=== PATIENT | female | born 1995 | race Caucasian/White ===

== ENCOUNTER 2019-11-16 10:13 | Inpatient (IN) ==
[2019-11-16 11:04] LABS: Basophils # 0.1 10*3/uL (0.0-0.2); Basophils % 0.6 % (0.0-0.8); Eosinophils % 0.4 % (0.00-10.9); Hematocrit 38.8 VOL% (35.7-47.0); Hemoglobin 12.8 GM/DL (12.0-16.0); Immature Granulocytes % 0.8 %; Immature Granulocytes Absolute 0.09 #; Lymphocytes # 1.6 10*3/uL (1.4-4.0); Lymphocytes % 15.3 % (21.3-54.2); Mean Corpuscular Volume 91.1 FL (87-102); Mean Platelet Volume 11.5 FL (9.6-12.0); Monocytes % 6.7 % (1.7-12.7); Neutrophils % 76.2 % (38.7-73.9); Platelet Count 301 T/CUMM (130-400); Red Blood Count 4.26 MC/CUMM (3.8-5.5); Red Cell Distribution Width 13.2 % (9.3-17.3); White Blood Count 10.6 T/CUMM (4-12)
[2019-11-16] MEDS ORDERED: BUTORPHANOL 2 MG/ML VIAL IV PRN (19:07)
[2019-11-16] MEDS: ONDANSETRON 4 MG/2 ML VIAL IV PRN (19:20)
[2019-11-16] MEDS ORDERED: FAMOTIDINE 20 MG/2 ML VIAL IV ONE (19:52)
[2019-11-16] MEDS ORDERED: PROMETHAZINE 25 MG/1 ML VIAL IM ONE (19:52)
[2019-11-16] MEDS ORDERED: hydrOXYzine HCL 25 MG/1 ML VIAL IM PRN (19:52)
[2019-11-16] MEDS ORDERED: NALOXONE 0.4 MG/ML VIAL IV PRN (19:52)
[2019-11-16] MEDS ORDERED: ONDANSETRON 4 MG/2 ML VIAL IV ONE (19:52)
[2019-11-16] MEDS ORDERED: CITRIC ACID/SODIUM CITRATE 30 ML UDCUP PO ONE (19:52)
[2019-11-16] MEDS ORDERED: diphenhydrAMINE 50 MG/1 ML VIAL IV PRN ×2 (19:52)
[2019-11-16] MEDS ORDERED: ePHEDrine 50 MG/ML VIAL IV PRN (19:52)
[2019-11-16] MEDS: LACTATED RINGERS 1,000 ML IV SCH ×2 (21:36→22:20)
[2019-11-16] MEDS: fentaNYL 2 MCG/ROPIV 0.2% EPID 100 ML EPIDURAL SCH (22:02)
[2019-11-17] MEDS: OXYTOCIN/LR 20 UNIT/1,000 ML BAG IV SCH ×2 (00:04→12:19)
[2019-11-17 00:07] LABS: Apearance,Urine CLEAR (Clear); Bacteria,Urine Occasional /HPF (Few); Bilirubin,Urine Negative (Negative); Blood, Urine Negative (Negative); Glucose,Urine (UA) Negative (Negative); Ketones,Urine 5 mg/dL (Negative); Mucus,Urine Occasional /LPF (Occasional); Nitrite,Urine Negative (Negative); Protein,Urine Negative; Squamous Epithelial Cell,Urine Occasional /HPF (0-10); Urine Color Yellow (Yellow); Urine Specific Gravity 1.006 (1.001-1.035); Urine Urobilinogen < 2.0 EU/DL (0.2-1.0); WBC,Urine <1 /HPF (0-6)
[2019-11-17] MEDS: LACTATED RINGERS 1,000 ML IV SCH ×2 (05:39→12:20)
[2019-11-17] MEDS: fentaNYL 2 MCG/ROPIV 0.2% EPID 100 ML EPIDURAL SCH (06:17)
[2019-11-17] MEDS ORDERED: ceFAZolin 2,000 MG in PREMIX 1 EACH IV ONE (13:31)
[2019-11-17] MEDS ORDERED: MORPHINE 10 MG/10 ML VIAL ONE (13:34)
[2019-11-17] MEDS ORDERED: LIDOCAINE MPF 2% /EPI 20 ML VIAL ONE (13:35)
[2019-11-17] MEDS ORDERED: OXYTOCIN/LR 20 UNIT/1,000 ML BAG IV ONE ×2 (13:40→14:21)
[2019-11-17] MEDS ORDERED: TRANEXAMIC ACID 1,000 MG/10 ML VIAL ONE (13:40)
[2019-11-17] MEDS ORDERED: CARBOPROST TROMETHAMINE 250 MCG/ML AMP IM ONE (13:40)
[2019-11-17] MEDS ORDERED: miSOPROStoL 200 MCG TABLET ONE (13:40)
[2019-11-17] MEDS ORDERED: METHYLERGONOVINE 0.2 MG/1 ML AMP ONE (13:40)
[2019-11-17] MEDS ORDERED: IBUPROFEN 800 MG TABLET PO PRN (14:21)
[2019-11-17] MEDS ORDERED: RHO(D) IMMUNE GLOBULIN 300 MCG SYRINGE IM ONE (14:21)
[2019-11-17] MEDS ORDERED: SIMETHICONE CHEW 80 MG TABLET PO PRN (14:21)
[2019-11-17] MEDS ORDERED: MAGNESIUM HYDROXIDE SUSP 30 ML UDCUP PO PRN (14:21)
[2019-11-17] MEDS ORDERED: ACETAMINOPHEN 325 MG TABLET PO PRN (14:21)
[2019-11-17] MEDS ORDERED: LACTATED RINGERS 1,000 ML IV SCH (14:30)
[2019-11-17] MEDS ORDERED: PHENYLEPHRINE 1 MG/10 ML SYRINGE IV ONE (14:34)
[2019-11-17] MEDS ORDERED: MIDAZOLAM 2 MG/2 ML VIAL ONE (14:34)
[2019-11-17 14:35] LABS: Cord Arterial Blood HCO3 23.9 MMOL/L
[2019-11-17 14:38] LABS: Cord Venous Blood HCO3 23.8 MMOL/L; Cord Venous Blood PCO2 47.1 MMHG; Cord Venous Blood PO2 26.6
[2019-11-17] MEDS: HYDROmorphone 2 MG/1 ML VIAL IV PRN (15:15)
[2019-11-17] MEDS: ONDANSETRON 4 MG/2 ML VIAL IV PRN (17:11)
[2019-11-17] MEDS: DOCUSATE SODIUM 100 MG CAPSULE PO SCH (21:07)
[2019-11-17] MEDS: ceFAZolin 1,000 MG in SYRINGE 1 EACH IV SCH (21:35)
[2019-11-17 21:52] LABS: Basophils # 0.1 10*3/uL (0.0-0.2); Basophils % 0.3 % (0.0-0.8); Hematocrit 32.4 VOL% (35.7-47.0); Hemoglobin 10.8 GM/DL (12.0-16.0); Immature Granulocytes % 0.6 %; Immature Granulocytes Absolute 0.12 #; Lymphocytes # 0.9 10*3/uL (1.4-4.0); Lymphocytes % 4.5 % (21.3-54.2); Mean Corpuscular HGB Conc 33.3 GM/DL (32-36); Mean Corpuscular Volume 90.8 FL (87-102); Mean Platelet Volume 11.5 FL (9.6-12.0); Monocytes % 5.5 % (1.7-12.7); Neutrophils % 89.1 % (38.7-73.9); Platelet Count 205 T/CUMM (130-400); Red Blood Count 3.57 MC/CUMM (3.8-5.5); Red Cell Distribution Width 13.1 % (9.3-17.3); White Blood Count 19.1 T/CUMM (4-12)
[2019-11-17] MEDS: KETOROLAC 30 MG/1 ML VIAL IM SCH (22:08)
[2019-11-17 23:35] LABS: Band Neutrophils 2 % (0-10); Lymphocytes 4 % (20-55); Segmented Neutrophils 87 % (50-85); Total Cells Counted 100
[2019-11-17 23:36] LABS: Hypochromasia 1+; Platelet Estimate Normal; Polychromasia Few
[2019-11-18] MEDS: KETOROLAC 30 MG/1 ML VIAL IM SCH ×4 (04:45→22:50)
[2019-11-18] MEDS: HYDROmorphone 2 MG/1 ML VIAL IV PRN (04:46)
[2019-11-18] MEDS: ONDANSETRON 4 MG/2 ML VIAL IV PRN ×2 (04:46→23:17)
[2019-11-18 05:28] LABS: Basophils # 0.1 10*3/uL (0.0-0.2); Basophils % 0.4 % (0.0-0.8); Eosinophils % 0.1 % (0.00-10.9); Hematocrit 33.5 VOL% (35.7-47.0); Immature Granulocytes % 2.2 %; Immature Granulocytes Absolute 0.39 #; Lymphocytes # 1.2 10*3/uL (1.4-4.0); Lymphocytes % 6.4 % (21.3-54.2); Mean Corpuscular HGB Conc 32.8 GM/DL (32-36); Mean Corpuscular Volume 89.8 FL (87-102); Mean Platelet Volume 11.9 FL (9.6-12.0); Monocytes % 7.5 % (1.7-12.7); Neutrophils % 83.4 % (38.7-73.9); Platelet Count 219 T/CUMM (130-400); Red Blood Count 3.73 MC/CUMM (3.8-5.5); Red Cell Distribution Width 13.2 % (9.3-17.3); White Blood Count 17.9 T/CUMM (4-12)
[2019-11-18] MEDS: ceFAZolin 1,000 MG in SYRINGE 1 EACH IV SCH (05:45)
[2019-11-18] MEDS: DOCUSATE SODIUM 100 MG CAPSULE PO SCH ×2 (08:29→20:52)
[2019-11-18] MEDS: MULTIVITAMIN (PRENATAL) TABLET PO SCH (08:29)
[2019-11-19] MEDS: KETOROLAC 30 MG/1 ML VIAL IM SCH ×2 (05:43→10:15)
[2019-11-19] MEDS: MULTIVITAMIN (PRENATAL) TABLET PO SCH (08:02)
[2019-11-19] MEDS: DOCUSATE SODIUM 100 MG CAPSULE PO SCH (08:02)
[2019-11-19 11:06] VITALS: BP 115/61
[2019-11-19] MEDS ORDERED: MEASLES/MUMPS/RUBELLA VACCINE 0.5 ML VIAL SUBCUT ONE ×2 (12:26→12:39)
== END 2019-11-19 13:59 | disposition home or self-care (01) | DRG 786 ==
LOC: N.LDOUT 10:13 → N.LD 10:14 → N.2E 11-18 03:03
PROVIDERS: ADMIT Obstetrics & Gynecology; ATTEND Obstetrics & Gynecology
PROC: LDCSECT (ICD-10-PCS; 2019-11-17 13:30)